=== PATIENT | female | born 1960 | race Two or more races ===

== ENCOUNTER 2018-02-03 06:21 | Emergency (ER) | payer OTHER ==
[~2018-02-03] VITALS: Ht 162.6 cm; Wt 72.6 kg
[2018-02-03] MEDS ORDERED: VASOTEC10 MG (06:37)
== END 2018-02-03 12:02 | disposition home or self-care (01) ==
LOC: ER 06:21
DX: R53.81 Other malaise (principal); J06.9 Acute upper respiratory infection, unspecified

== ENCOUNTER 2024-06-14 07:17 | Outpatient (CLI) | payer OTHER ==
[~2024-06-14 07:17] MED LIST: VASOTEC10 MG
== END 2024-06-14 07:22 | disposition home or self-care (01) ==
LOC: SONOGRAMA 07:17
DX: R10.9 Unspecified abdominal pain (principal)